=== PATIENT | male | born 1945 | race Caucasian/White ===

== ENCOUNTER 2019-01-02 15:07 | Inpatient (IN) | payer MEDICARE, BC ==
[~2019-01-02] VITALS: Ht 177.8 cm; Wt 61.7 kg
[~2019-01-02 15:07] MED LIST: CARB-35 PO; CARB-93 PO; HYDR25TA4 PO; OLME40TA12 PO; POTA10CA43 PO; TEMA15CA PO
[2019-01-02 16:00] VITALS: BP 115/76
[2019-01-02] MEDS ORDERED: MAGNESIUM HYDROXIDE 30 ML LIQUID UDC PO PRN (16:30)
[2019-01-02] MEDS ORDERED: MAG HYDROX/AL HYDROX/SIMETH 30 ML LIQUID UDC PO PRN (16:30)
[2019-01-02] MEDS ORDERED: ACETAMINOPHEN 325 MG TABLET PO PRN (16:30)
[2019-01-02] MEDS: LORAZEPAM 0.5 MG TABLET PO PRN (18:09)
--- NOTE | 2019-01-02 20:00 | NUR ---
RECEIVED PATIENT IN THE DAY ROOM, SITTING UP IN A SEGUNDO CHAIR. HE IS NOTED A/O X 1 (TO NAME ONLY) CONFUSED, IMPAIRED INSIGHT AND JUDGMENT IS ALSO NOTED. HE IS NOTED CALM AND PLEASANT AND IN NO DISTRESS. HE IS ON 1:1 SUPERVISION FOR FALL PRECAUTION, WONDERING AND UNABLE TO CFS. PATIENT WAS REASSURED FOR HIS SAFETY. WILL CONTINUE TO MONITOR.
[2019-01-02 21:19] VITALS: BP 112/56
[2019-01-03] MEDS: TEMAZEPAM 7.5 MG CAPSULE PO PRN ×2 (00:26→22:39)
[2019-01-03 07:30] VITALS: BP 114/76
[2019-01-03 09:21] LABS: CARBON DIOXIDE 20 mmol/L (21-32); CHLORIDE 104 mmol/L (98-107); CREATININE 1.6 mg/dL (0.6-1.3); GLUCOSE 108 mg/dL (74-106); POTASSIUM 3.5 mmol/L (3.5-5.1); UREA NITROGEN, BLOOD 24 mg/dL (7-18)
--- NOTE | 2019-01-03 13:00 | NUR ---
Gps/Colorist Formulator- Patient's Aydee, came in to see/visit patient, pertinent records provided and was placed in the chart. Patient's Aydee is the DPOA, provided copy of the DNR, list of meds.,and informations regarding his Lewy body dementia . Remains with 1:1 Nursing supervision for safety.
[2019-01-03] MEDS: LORAZEPAM 0.5 MG TABLET PO PRN (15:52)
[2019-01-03 16:00] VITALS: BP 149/88
[2019-01-03] MEDS: SERTRALINE HCL 50 MG TABLET PO SCH (16:45)
[2019-01-03] MEDS: busPIRone 5 MG TABLET PO SCH (16:45)
[2019-01-03] MEDS: OXCARBAZEPINE 150 MG TABLET PO SCH (16:45)
--- NOTE | 2019-01-03 18:25 | NUR ---
Gps/Survival Specialist-Primo Rutherford (Neurologist) in to see patient , orders received to start patient on his carbidopa levodopa 25/100 mg 3 tabs po q am, 2 tabs po daily at noon and daily 1 tab. po q pm at 1700.Noted patient was sleepy this pm , informed patient was up on his suhas-chair most of the morning, and pt. was restless this pm ativan 0.5 mg po was given crushed with apple sauce. Remains with 1:1 Nursing supervision for safety.
--- NOTE | 2019-01-03 18:46 | NUR ---
Gps/Wastewater Design Engineer- Dr Palacios was called, texted to reconcile medications.
[2019-01-03 20:00] VITALS: BP 118/68
--- NOTE | 2019-01-03 21:50 | NUR ---
Received pt resting in bed. AAO x1. No acute distress noted. No facial cues for pain noted. Appears to be calm. 1:1 sitter at bedside for safety. Safety measures maintained. Bed alarm on. Will continue to monitor.
[2019-01-03] MEDS: METOPROLOL TARTRATE 25 MG TABLET PO SCH (22:35)
[2019-01-04 07:10] LABS: BASOPHILS # (AUTO) 0.1 K/uL (0.0-8.0); EOSINOPHILS # (AUTO) 0.2 K/uL (0.0-0.7); EOSINOPHILS % (AUTO) 1.7 % (0.0-7.0); HEMATOCRIT 35.3 % (36.7-47.1); HEMOGLOBIN 12.3 g/dL (12.5-16.3); LYMPHOCYTES # (AUTO) 1.4 K/uL (20.0-40.0); LYMPHOCYTES % (AUTO) 13.6 % (20.5-51.5); MEAN CORPUSCULAR HEMOGLOBIN 32.4 uug (23.8-33.4); MEAN CORPUSCULAR HGB CONC 35 g/dL (32.5-36.3); MEAN CORPUSCULAR VOLUME 92.8 fL (73.0-96.2); MONOCYTES # (AUTO) 0.8 K/uL (2.0-10.0); MONOCYTES % (AUTO) 7.8 % (0.0-11.0); NEUTROPHILS # (AUTO) 7.6 K/uL (1.8-8.9); NEUTROPHILS % (AUTO) 75.9 % (38.5-71.5); PLATELET COUNT (AUTO) 145 K/uL (152-348); WHITE BLOOD COUNT (AUTO) 10.1 K/uL (3.6-10.2)
[2019-01-04 07:59] LABS: ALANINE AMINOTRANSFERASE 38 U/L (16-63); ALKALINE PHOSPHATASE 89 U/L (50-136); ASPARTATE AMINOTRANSFERASE 30 U/L (15-37); BILIRUBIN,TOTAL 0.8 mg/dL (0.2-1.0); CARBON DIOXIDE 27 mmol/L (21-32); CHLORIDE 105 mmol/L (98-107); CREATININE 1.2 mg/dL (0.6-1.3); GLUCOSE 101 mg/dL (74-106); MAGNESIUM 1.9 mg/dL (1.8-2.4); POTASSIUM 3.4 mmol/L (3.5-5.1); TOTAL PROTEIN, SERUM 6.3 g/dL (6.4-8.2); UREA NITROGEN, BLOOD 21 mg/dL (7-18)
[2019-01-04 08:21] LABS: THYROID STIMULATING HORMONE 1.343 mIU/mL (0.358-3.740)
[2019-01-04 08:30] VITALS: BP 107/54
[2019-01-04] MEDS: busPIRone 5 MG TABLET PO SCH ×3 (08:56→18:03)
[2019-01-04] MEDS: POTASSIUM CHLORIDE 10 MEQ TAB.PRT.SR PO SCH (08:56)
[2019-01-04] MEDS: CARBIDOPA/LEVODOPA 25-100MG TABLET PO SCH (08:56)
[2019-01-04] MEDS: OXCARBAZEPINE 150 MG TABLET PO SCH (08:57)
[2019-01-04] MEDS: METOPROLOL TARTRATE 25 MG TABLET PO SCH ×2 (08:57→20:26)
[2019-01-04] MEDS ORDERED: POTASSIUM CHLORIDE 10 MEQ TAB.PRT.SR PO ONE (09:30)
[2019-01-04] MEDS: CARBIDOPA/LEVODOPA CR 25-100MG TABLET.SA PO SCH ×3 (12:16→17:29)
--- NOTE | 2019-01-04 14:56 | NUR ---
Initial Discharge Plan: Patient is a 73 year old male who was living at [facility] [[address], [place] [address]; ] for 1 week prior to admission. Per Kyung, patient [[phone]], patient will be unable to return to facility due to unmanageable behavior. Kyung states that she has found a new placement with [facility] [[address], [place], [place]; ]. viscosity worker will follow-up with facility RN, Kalee, about patient discharging to facility when ready. viscosity worker will continue to collaborate with patient, Kyung, and MD on a safe and proper discharge.
[2019-01-04 16:00] VITALS: BP 108/58
[2019-01-04] MEDS: SERTRALINE HCL 50 MG TABLET PO SCH (18:04)
--- NOTE | 2019-01-04 18:15 | NUR ---
Gps/Chief Of Field Operations- remains sitting up on his suhas-chair sitter with patient , assisted w/ his meals . Routine pm meds. was crushed administered with apple sauce, pt. was spiiting out his med.
[2019-01-04 20:10] VITALS: BP 115/64
[2019-01-04] MEDS: TEMAZEPAM 7.5 MG CAPSULE PO PRN (23:53)
--- NOTE | 2019-01-05 06:19 | NUR ---
Gps: Remain confused and disoriented.assisted with adl's.all hs po meds crushed administered with apple sauce due to patient had difficulty of swallowing meds. slept 6 hrs through the night after sleeping meds given. continue on 1:1 sitter @ bedside fir safety.continue plan of care.
[2019-01-05 07:30] VITALS: BP 142/67
[2019-01-05] MEDS: busPIRone 5 MG TABLET PO SCH ×3 (08:12→16:44)
[2019-01-05] MEDS: POTASSIUM CHLORIDE 10 MEQ TAB.PRT.SR PO SCH (08:12)
[2019-01-05] MEDS: METOPROLOL TARTRATE 25 MG TABLET PO SCH ×2 (08:13→21:43)
[2019-01-05] MEDS: CARBIDOPA/LEVODOPA 25-100MG TABLET PO SCH (08:14)
[2019-01-05] MEDS: LORAZEPAM 0.5 MG TABLET PO PRN (11:26)
[2019-01-05] MEDS: CARBIDOPA/LEVODOPA CR 25-100MG TABLET.SA PO SCH ×2 (12:43→16:45)
[2019-01-05 16:32] VITALS: BP 124/65
[2019-01-05] MEDS: SERTRALINE HCL 50 MG TABLET PO SCH (16:45)
--- NOTE | 2019-01-05 17:53 | NUR ---
GPS; RECEIEVED PATIENT ASLEEP ON BED ON 1:1 SITTER FOR SAFETY, PATIENT ALERT, CONFUSED, DISORIENTED, PATIENT CALM BUT NEEDS PROMPTING AND TOTAL CARE, COMPLIANT TO MEDICATION , ALL NEEDS ATTENDED WILL CONTINUE MONITOR
[2019-01-05 20:09] VITALS: BP 120/57
[2019-01-06] MEDS: TEMAZEPAM 7.5 MG CAPSULE PO PRN (00:28)
[2019-01-06 07:30] VITALS: BP 111/70
--- NOTE | 2019-01-06 07:43 | NUR ---
SBAR report received,pt.sleeping,no s/s of distress or pain noted. sitter 1:1 at bedside.
[2019-01-06] MEDS: busPIRone 5 MG TABLET PO SCH ×3 (08:33→17:22)
[2019-01-06] MEDS: POTASSIUM CHLORIDE 10 MEQ TAB.PRT.SR PO SCH (08:33)
[2019-01-06] MEDS: CARBIDOPA/LEVODOPA 25-100MG TABLET PO SCH (08:34)
[2019-01-06] MEDS: METOPROLOL TARTRATE 25 MG TABLET PO SCH ×2 (08:34→20:33)
[2019-01-06] MEDS: CARBIDOPA/LEVODOPA CR 25-100MG TABLET.SA PO SCH ×2 (13:07→17:26)
[2019-01-06 14:12] LABS: BASOPHILS # (AUTO) 0.1 K/uL (0.0-8.0); BASOPHILS % (AUTO) 0.7 % (0.0-2.0); EOSINOPHILS % (AUTO) 0.5 % (0.0-7.0); HEMATOCRIT 38.3 % (36.7-47.1); LYMPHOCYTES # (AUTO) 0.4 K/uL (20.0-40.0); LYMPHOCYTES % (AUTO) 4.7 % (20.5-51.5); MEAN CORPUSCULAR HEMOGLOBIN 32.1 uug (23.8-33.4); MEAN CORPUSCULAR HGB CONC 34 g/dL (32.5-36.3); MEAN CORPUSCULAR VOLUME 94.4 fL (73.0-96.2); MONOCYTES # (AUTO) 0.5 K/uL (2.0-10.0); MONOCYTES % (AUTO) 6.5 % (0.0-11.0); NEUTROPHILS # (AUTO) 6.8 K/uL (1.8-8.9); NEUTROPHILS % (AUTO) 87.6 % (38.5-71.5); PLATELET COUNT (AUTO) 168 K/uL (152-348); RED BLOOD CELL COUNT(AUTO) 4.06 MIL/uL (4.06-5.63); WHITE BLOOD COUNT (AUTO) 7.8 K/uL (3.6-10.2)
[2019-01-06 14:19] LABS: CARBON DIOXIDE 27 mmol/L (21-32); CHLORIDE 108 mmol/L (98-107); CREATININE 1.5 mg/dL (0.6-1.3); GLUCOSE 164 mg/dL (74-106); POTASSIUM 4.6 mmol/L (3.5-5.1); UREA NITROGEN, BLOOD 36 mg/dL (7-18)
[2019-01-06 14:20] LABS: ALANINE AMINOTRANSFERASE 15 U/L (16-63); ALKALINE PHOSPHATASE 103 U/L (50-136); ASPARTATE AMINOTRANSFERASE 42 U/L (15-37); BILIRUBIN,TOTAL 0.5 mg/dL (0.2-1.0); TOTAL PROTEIN, SERUM 6.8 g/dL (6.4-8.2)
[2019-01-06 16:31] VITALS: BP 119/66
[2019-01-06] MEDS: SERTRALINE HCL 50 MG TABLET PO SCH (17:23)
--- NOTE | 2019-01-06 18:39 | NUR ---
Pt. more cooperative, still drowsy, non verbal.1:1 sitter at bedside.
[2019-01-06 20:09] VITALS: BP 123/54
--- NOTE | 2019-01-07 06:37 | NUR ---
Patient is disoriented and confused. Slept for 7.3 hours last night. Patient has a 1:1 sitter. Total care given. No agitation at this time. Patient resting in bed comfortably at this time. No distress noted. Safety precautions implemented.
[2019-01-07 07:00] LABS: HEMATOCRIT 35.4 % (36.7-47.1); HEMOGLOBIN 12.2 g/dL (12.5-16.3); LYMPHOCYTES # (AUTO) 0.9 K/uL (20.0-40.0); LYMPHOCYTES % (AUTO) 14.2 % (20.5-51.5); MEAN CORPUSCULAR HEMOGLOBIN 32.3 uug (23.8-33.4); MEAN CORPUSCULAR HGB CONC 35 g/dL (32.5-36.3); MEAN CORPUSCULAR VOLUME 93.4 fL (73.0-96.2); MONOCYTES # (AUTO) 0.7 K/uL (2.0-10.0); MONOCYTES % (AUTO) 10.7 % (0.0-11.0); NEUTROPHILS # (AUTO) 4.8 K/uL (1.8-8.9); NEUTROPHILS % (AUTO) 75.1 % (38.5-71.5); PLATELET COUNT (AUTO) 148 K/uL (152-348); RED BLOOD CELL COUNT(AUTO) 3.79 MIL/uL (4.06-5.63); WHITE BLOOD COUNT (AUTO) 6.3 K/uL (3.6-10.2)
[2019-01-07 07:20] LABS: ALANINE AMINOTRANSFERASE 17 U/L (16-63); ALKALINE PHOSPHATASE 101 U/L (50-136); ASPARTATE AMINOTRANSFERASE 43 U/L (15-37); BILIRUBIN,TOTAL 0.4 mg/dL (0.2-1.0); CARBON DIOXIDE 23 mmol/L (21-32); CHLORIDE 111 mmol/L (98-107); CREATININE 1.4 mg/dL (0.6-1.3); GLUCOSE 121 mg/dL (74-106); POTASSIUM 3.6 mmol/L (3.5-5.1); TOTAL PROTEIN, SERUM 6.3 g/dL (6.4-8.2); UREA NITROGEN, BLOOD 34 mg/dL (7-18)
[2019-01-07 07:30] VITALS: BP 116/51
[2019-01-07] MEDS: POTASSIUM CHLORIDE 10 MEQ TAB.PRT.SR PO SCH (09:18)
[2019-01-07] MEDS: busPIRone 5 MG TABLET PO SCH ×3 (09:18→17:19)
[2019-01-07] MEDS: METOPROLOL TARTRATE 25 MG TABLET PO SCH ×2 (09:19→21:01)
[2019-01-07] MEDS: CARBIDOPA/LEVODOPA 25-100MG TABLET PO SCH (09:25)
--- NOTE | 2019-01-07 10:04 | NUR ---
Discharge planning: structural iron worker called and left a voicemail for MK Granda, at [facility] [[address] [place] [address], [place], [place]; ] regarding patient discharge to facility when ready. structural iron worker awaiting call back.
[2019-01-07] MEDS: CARBIDOPA/LEVODOPA CR 25-100MG TABLET.SA PO SCH ×2 (12:41→17:14)
--- NOTE | 2019-01-07 13:20 | NUR ---
DR MAYORGA HERE TO SEE PATIENT WITH NEW ORDERS AND NOTED PATIENTS STATED THAT PATIENT WAS ABLE TO RECOGNIZE HER WHEN SHE WAS HERE 2 DAYS AGO BUT HE TATUM NOT RECOGNISE HER TODAY DR MAYORGA AWARE.
[2019-01-07] MEDS: SERTRALINE HCL 50 MG TABLET PO SCH ×2 (14:56→17:15)
--- NOTE | 2019-01-07 15:29 | NUR ---
Discharge planning: oyster bed worker called and spoke with patient , Kyung [[phone]], regarding patient discharge plan. Per Kyung, Dr. Espana suggested patient may benefit from SNF placement prior to going to a board and care. Kyung inquired what patient would benefit from. oyster bed worker facilitated conversation about pros and cons of SNF placement. Kyung expressed understanding and agreed to [facility] at [facility] [[address] [place] [address]; ]. Kyung states she is still thinking about [facility] [[facility] [place], [place], [facility]] and would like patient to be assessed for possible placement, but is open to SNF placement as well if board and care cannot manage patient behavior/level of care need. oyster bed worker has agreed to follow-up with Kyung on Monday regarding [facility]. oyster bed worker has faxed inquiry to [facility] and is currently awaiting response from transaction coordinator, Angel. oyster bed worker will follow-up as needed. Addendum: 01/07/19 at 1629 by VINNIE TILLMAN oyster bed worker received call back from Angel, who states that patient will not be accepted to facility due to "no bed availability".
[2019-01-07 15:55] VITALS: BP 121/79
[2019-01-07] MEDS ORDERED: busPIRone 5 MG TABLET PO SCH (17:00)
--- NOTE | 2019-01-07 18:00 | NUR ---
RESTING IN BED CONTINUES TO NEED ONE ON ONE SITTER FOR SAFETY WITH POOR SAFETY AWARENESS RELATED TO CONFUSSION.
[2019-01-07 20:00] VITALS: BP 133/83
[2019-01-07] MEDS ORDERED: OXCARBAZEPINE 150 MG TABLET PO SCH (21:00)
[2019-01-08 07:30] VITALS: BP 117/60
[2019-01-08] MEDS: busPIRone 5 MG TABLET PO SCH ×3 (09:00→16:34)
[2019-01-08] MEDS: POTASSIUM CHLORIDE 10 MEQ TAB.PRT.SR PO SCH (09:00)
[2019-01-08] MEDS: CARBIDOPA/LEVODOPA 25-100MG TABLET PO SCH (09:01)
[2019-01-08] MEDS: METOPROLOL TARTRATE 25 MG TABLET PO SCH ×2 (09:01→21:56)
[2019-01-08] MEDS: SERTRALINE HCL 50 MG TABLET PO SCH ×2 (12:24→16:34)
[2019-01-08] MEDS: CARBIDOPA/LEVODOPA CR 25-100MG TABLET.SA PO SCH ×2 (12:25→16:34)
[2019-01-08 15:31] VITALS: BP 121/65
[2019-01-08 16:19] LABS: *BILIRUBIN,URIN NEGATIVE (NEGATIVE); *BLOOD, URINE 1+ (NEGATIVE); *CLARITY,URINE CLOUDY (CLEAR); *COLOR,URINE YELLOW (YELLOW); *KETONES,URINE NEGATIVE (NEGATIVE); LEUKOCYTE ESTERASE ,URINE 3+ (NEGATIVE); NITRITE, URINE NEGATIVE (NEGATIVE); PH,URINE 5.5 (5.0-8.0); UGLUCOSE NEGATIVE (NEGATIVE)
[2019-01-08 16:30] LABS: BACTERIA,URINE MANY /HPF (NONE SEEN); WBC,URINE TNTC /HPF (0-3)
--- NOTE | 2019-01-08 18:34 | NUR ---
CALLED JENNIFER RYDER RE RESULTS OR URINALYSIS WITH NEW ORDERS AND NOTED.
[2019-01-08 20:39] VITALS: BP 107/62
[2019-01-08] MEDS: CEphaleXIN 500 MG CAPSULE PO SCH (20:41)
[2019-01-08] MEDS ORDERED: OXCARBAZEPINE 150 MG TABLET PO SCH (21:00)
[2019-01-08] MEDS: OXCARBAZEPINE 300 MG TABLET PO SCH (21:00)
--- NOTE | 2019-01-08 21:30 | NUR ---
Patient received 2100 dose of 300mg Trileptal. New order came in for same dose, right after, that was held d/t prescriber error of duplication.
[2019-01-08] MEDS: TEMAZEPAM 7.5 MG CAPSULE PO PRN (21:57)
--- NOTE | 2019-01-08 23:57 | NUR ---
Patient was up in chair most of the evening. Passive, smiling. Cooperated with taking medications. Patient put to bed with 2 person assist. Very stiff and heavy, but did not resist in any way. No combativeness noted so far this shift. Continuing to monitor.
--- NOTE | 2019-01-09 06:13 | NUR ---
Patient assisted out of bed to shower. Very stiff, but he tried to be helpful. No combativeness or aggression noted during the shift of any kind. Full shower received, patient was as compliant as possible given his physical and mental condition. No attempts to climb out of bed during the night. No distress at this time.
[2019-01-09] MEDS: busPIRone 5 MG TABLET PO SCH ×3 (08:32→16:30)
[2019-01-09] MEDS: POTASSIUM CHLORIDE 10 MEQ TAB.PRT.SR PO SCH (08:32)
[2019-01-09] MEDS: CEphaleXIN 500 MG CAPSULE PO SCH ×2 (08:32→20:36)
[2019-01-09] MEDS: METOPROLOL TARTRATE 25 MG TABLET PO SCH ×2 (08:33→20:33)
[2019-01-09] MEDS: CARBIDOPA/LEVODOPA 25-100MG TABLET PO SCH (08:33)
[2019-01-09 10:00] VITALS: BP 158/89
[2019-01-09] MEDS: CARBIDOPA/LEVODOPA CR 25-100MG TABLET.SA PO SCH ×2 (12:09→16:31)
[2019-01-09] MEDS: SERTRALINE HCL 50 MG TABLET PO SCH ×2 (12:10→16:31)
--- NOTE | 2019-01-09 14:03 | NUR ---
Discharge planning: Patient has been assessed by MK Granda, at [facility] [[facility] [place], [place], [place]; ] today. Per Kalee, they will be able to accept patient when ready for discharge. Kalee requests that a physician's report be completed and states she will fax paperwork. biscuit factory worker awaiting faxed physician's report. biscuit factory worker informed patient , Kyung [[phone]], that patient has been accepted to [facility] and care. Per Kyung, she is pleased with this information, but would still like a second option in case placement does not work out. biscuit factory worker informed Kyung that patient has been accepted at [facility] [[address] [place] [address]; ] and she was agreeable to this. Kyung requested that patient also be referred to [facility] [[address], [place] [address]; ]. biscuit factory worker called and spoke with commissions coordinator, Awilda, who requests a referral packet be sent. biscuit factory worker will send referral packet. Addendum: 01/09/19 at 1653 by VINNIE TILLMAN biscuit factory worker received physician's report from Kalee and has given it to MD to fill-out. Per Kalee, patient will also need a chest X-ray. biscuit factory worker informed medical charge entry specialistRoxann, who has put order in.
[2019-01-09 16:00] VITALS: BP 101/70
--- NOTE | 2019-01-09 17:54 | NUR ---
RECEIVED PATIENT ASLEEP ON BED, WITH 1:1 SITTER FOR SAFETY, NO COMBATIVE BEHAVIOR NOTED, PATIENT TOOK MEDICATION WITH APPLE SAUCE, PATIENT WAS REDIRECTABLE, WILL CONTINUE MONITOR
[2019-01-09 19:52] VITALS: BP 121/67
[2019-01-09] MEDS: LORAZEPAM 0.5 MG TABLET PO PRN (20:34)
[2019-01-09] MEDS: OXCARBAZEPINE 300 MG TABLET PO SCH (20:34)
[2019-01-10 07:12] LABS: CARBON DIOXIDE 25 mmol/L (21-32); CHLORIDE 113 mmol/L (98-107); CREATININE 1.7 mg/dL (0.6-1.3); GLUCOSE 117 mg/dL (74-106); UREA NITROGEN, BLOOD 45 mg/dL (7-18)
[2019-01-10 07:30] VITALS: BP 119/87
[2019-01-10] MEDS: busPIRone 5 MG TABLET PO SCH ×2 (08:41→12:48)
[2019-01-10] MEDS: CEphaleXIN 500 MG CAPSULE PO SCH (08:41)
[2019-01-10 08:42] VITALS: BP 119/87
[2019-01-10] MEDS: METOPROLOL TARTRATE 25 MG TABLET PO SCH (08:42)
[2019-01-10] MEDS: CARBIDOPA/LEVODOPA 25-100MG TABLET PO SCH (09:47)
[2019-01-10] MEDS ORDERED: POTASSIUM CHLORIDE 20 MEQ POWDER PACKET PO SCH (11:00)
--- NOTE | 2019-01-10 12:17 | NUR ---
DC NOTE: Patient will be discharged to the medical floor today to address possible pneumonia. Patient , Kyung [[phone]] has been notified and agreeable to plan. Patient will continue on 5250 hold. marble worker will remain available to patient and family for ongoing support as needed.
[2019-01-10] MEDS: SERTRALINE HCL 50 MG TABLET PO SCH (12:48)
[2019-01-10] MEDS: CARBIDOPA/LEVODOPA CR 25-100MG TABLET.SA PO SCH (13:19)
--- NOTE | 2019-01-10 13:42 | NUR ---
Gps/Sports Intern- Called 3rd floor for report, given to Rich Martel. Patient does not have any belongings. Patient assisted with meals, needed prompting and encouragement. No sign of any distress. Discharged to 3rd floor as ordered. was already informed.
== END 2019-01-10 13:49 | disposition short-term general hospital (02) | DRG 885 ==
LOC: GPS 15:07
PROVIDERS: ADMIT Psychiatry & Neurology Psychosomatic Medicine; ATTEND Internal Medicine
DX: F29 Unspecified psychosis not due to a substance or known physiological condition (principal); N17.0 Acute kidney failure with tubular necrosis; J18.9 Pneumonia, unspecified organism; N39.0 Urinary tract infection, site not specified; G93.40 Encephalopathy, unspecified; E44.0 Moderate protein-calorie malnutrition; Z68.1 Body mass index [BMI] 19.9 or less, adult; G31.83 Neurocognitive disorder with Lewy bodies; F02.80 Dementia in other diseases classified elsewhere, unspecified severity, without behavioral disturbance, psychotic disturbance, mood disturbance, and anxiety; E87.6 Hypokalemia; D69.6 Thrombocytopenia, unspecified; D63.8 Anemia in other chronic diseases classified elsewhere; Z87.440 Personal history of urinary (tract) infections; R62.7 Adult failure to thrive; E86.9 Volume depletion, unspecified
CPT/HCPCS: 36415; 71045; 83735; 84100; 84443; 85025; 87077; 87086; 97110; 97112; 97116; 97530

== ENCOUNTER 2019-01-10 15:18 | Inpatient (IN) | payer MEDICARE, BC ==
[~2019-01-10] VITALS: Ht 172.7 cm; Wt 85.7 kg
[~2019-01-10 15:18] MED LIST changes: -TEMA15CA PO
[2019-01-10] MEDS ORDERED: IV NS 1000 ML 1,000 ML IV PRN (15:30)
[2019-01-10] MEDS ORDERED: ZOLPIDEM 5 MG TABLET PO PRN (15:30)
[2019-01-10] MEDS ORDERED: ONDANSETRON 4 MG/2 ML VIAL IV PRN (15:30)
[2019-01-10] MEDS ORDERED: HYDROCODONE/APAP 5-325MG TABLET PO PRN (15:30)
[2019-01-10] MEDS ORDERED: ACETAMINOPHEN 325 MG TABLET PO PRN ×2 (15:30→17:30)
[2019-01-10] MEDS ORDERED: DEXTROSE 50% 50 ML DISP.SYRIN IV PRN (15:45)
[2019-01-10 16:00] VITALS: BP 111/69
[2019-01-10 16:55] LABS: BASOPHILS # (AUTO) 0.1 K/uL (0.0-8.0); BASOPHILS % (AUTO) 1.1 % (0.0-2.0); EOSINOPHILS # (AUTO) 0.1 K/uL (0.0-0.7); EOSINOPHILS % (AUTO) 0.9 % (0.0-7.0); HEMATOCRIT 38.5 % (36.7-47.1); LYMPHOCYTES % (AUTO) 13.6 % (20.5-51.5); MEAN CORPUSCULAR HEMOGLOBIN 31.9 uug (23.8-33.4); MEAN CORPUSCULAR HGB CONC 34 g/dL (32.5-36.3); MEAN CORPUSCULAR VOLUME 94.4 fL (73.0-96.2); MONOCYTES # (AUTO) 1.1 K/uL (2.0-10.0); MONOCYTES % (AUTO) 14.1 % (0.0-11.0); NEUTROPHILS # (AUTO) 5.3 K/uL (1.8-8.9); NEUTROPHILS % (AUTO) 70.3 % (38.5-71.5); PLATELET COUNT (AUTO) 183 K/uL (152-348); RED BLOOD CELL COUNT(AUTO) 4.08 MIL/uL (4.06-5.63); WHITE BLOOD COUNT (AUTO) 7.6 K/uL (3.6-10.2)
[2019-01-10] MEDS ORDERED: MAGNESIUM HYDROXIDE 30 ML LIQUID UDC PO PRN (17:30)
[2019-01-10] MEDS ORDERED: MAG HYDROX/AL HYDROX/SIMETH 30 ML LIQUID UDC PO PRN (17:30)
[2019-01-10] MEDS: LEVOFLOXACIN 500 MG/D5W 500 MG in PREMIXED 1 EACH IV SCH (18:09)
[2019-01-10] MEDS: CEFTRIAXONE 1 G in IV DEXTROSE 5% 50 ML IV SCH (18:09)
[2019-01-10] MEDS: BLOOD SUGAR DIAGNOSTIC 1 EACH STRIP VI SCH ×2 (18:19→21:26)
--- NOTE | 2019-01-10 19:15 | NUR ---
RECEIVED PATIENT AWAKE IN BED AND RESTING COMFORTABLY. THERE ARE NO SIGNS OF ACUTE DISTRESS OR DISCOMFORT NOTED OR OBSERVED. ALL SAFETY AND FALL PREVENTION MEASURES ARE IN PLACE. BED IN LOWEST POSITION AND BRAKE APPLIED. 2 SIDE RAILS ARE UP AND IN LOCKED POSITION. 1:1 SITTER AT BEDSIDE. IV SITE IS PATENT AND INTACT. WILL CONTINUE TO MONITOR.
[2019-01-10 20:00] VITALS: BP 121/56
--- NOTE | 2019-01-10 20:30 | NUR ---
SPOKE WITH OF PATIENT AND GAVE UPDATE ON PATIENT'S STATUS. ASSURED THAT PATIENT IS RESTING COMFORTABLY AND ALL OF HIS NURSING NEEDS HAVE BEEN MET AND WILL CONTINUE TO BE MET DURING THIS SHIFT.
[2019-01-10] MEDS ORDERED: CEphaleXIN 500 MG CAPSULE PO SCH (21:00)
[2019-01-10] MEDS: TEMAZEPAM 7.5 MG CAPSULE PO PRN (21:18)
[2019-01-10] MEDS: OXCARBAZEPINE 300 MG TABLET PO SCH (21:19)
[2019-01-10] MEDS: METOPROLOL TARTRATE 25 MG TABLET PO SCH (21:19)
--- NOTE | 2019-01-11 05:00 | NUR ---
PATIENT SLEPT COMFORTABLY THROUGHOUT THE NIGHT. VS WNL AND PATIENT IS STABLE. IV SITE PATENT AND INTACT. SAFETY AND FALL PREVENTION MEASURES IN PLACE. BED IN LOW POSITION WITH BRAKE LOCKED. SIDE RAILS UP AND LOCKED. 1:1 SITTER AT BEDSIDE AT ALL TIMES. WILL PROVIDE REPORT TO MORNING SHIFT.
[2019-01-11 05:39] VITALS: BP 133/54
[2019-01-11] MEDS: BLOOD SUGAR DIAGNOSTIC 1 EACH STRIP VI SCH ×4 (07:03→20:22)
[2019-01-11 07:50] LABS: BASOPHILS % (AUTO) 0.6 % (0.0-2.0); EOSINOPHILS # (AUTO) 0.1 K/uL (0.0-0.7); EOSINOPHILS % (AUTO) 0.8 % (0.0-7.0); HEMOGLOBIN 12.2 g/dL (12.5-16.3); LYMPHOCYTES # (AUTO) 1.1 K/uL (20.0-40.0); LYMPHOCYTES % (AUTO) 14.3 % (20.5-51.5); MEAN CORPUSCULAR HGB CONC 34 g/dL (32.5-36.3); MEAN CORPUSCULAR VOLUME 94.3 fL (73.0-96.2); MONOCYTES # (AUTO) 1.1 K/uL (2.0-10.0); MONOCYTES % (AUTO) 13.5 % (0.0-11.0); NEUTROPHILS # (AUTO) 5.7 K/uL (1.8-8.9); NEUTROPHILS % (AUTO) 70.8 % (38.5-71.5); PLATELET COUNT (AUTO) 171 K/uL (152-348); RED BLOOD CELL COUNT(AUTO) 3.81 MIL/uL (4.06-5.63); WHITE BLOOD COUNT (AUTO) 8.1 K/uL (3.6-10.2)
[2019-01-11 07:53] LABS: CARBON DIOXIDE 24 mmol/L (21-32); CHLORIDE 115 mmol/L (98-107); CREATININE 1.7 mg/dL (0.6-1.3); GLUCOSE 107 mg/dL (74-106); PHOSPHOROUS 3.4 mg/dL (2.5-4.9); POTASSIUM 4.1 mmol/L (3.5-5.1); UREA NITROGEN, BLOOD 45 mg/dL (7-18)
--- NOTE | 2019-01-11 08:00 | NUR ---
Sleeping, appears comfortable. 1:1 sitter at bedside
[2019-01-11 09:00] VITALS: BP 119/55
[2019-01-11] MEDS ORDERED: POTASSIUM CHLORIDE 10 MEQ TAB.PRT.SR PO SCH (09:00)
[2019-01-11] MEDS: busPIRone 5 MG TABLET PO SCH ×3 (09:34→17:40)
[2019-01-11] MEDS: METOPROLOL TARTRATE 25 MG TABLET PO SCH ×3 (09:35→20:32)
[2019-01-11] MEDS: CARBIDOPA/LEVODOPA 25-100MG TABLET PO SCH (09:35)
--- NOTE | 2019-01-11 09:40 | NUR ---
Temp 100.1. Tylenol po given
--- NOTE | 2019-01-11 10:45 | NUR ---
Renal ultrasound showed distended bladder, approximately 1 liter or more urine retention, even though with noted urine in the diaper. With orders to insert richardson catheter, inserted with 1700 initial urine output with sediments, purulent. Urine seen by Dr. Rao. Urine specimen sen to lab as ordered.
[2019-01-11 11:29] LABS: *BILIRUBIN,URIN NEGATIVE (NEGATIVE); *BLOOD, URINE 3+ (NEGATIVE); *CLARITY,URINE CLOUDY (CLEAR); *COLOR,URINE YELLOW (YELLOW); *KETONES,URINE NEGATIVE (NEGATIVE); *UROBILINOGEN,URINE 0.2 E.U./dl (NORMAL); LEUKOCYTE ESTERASE ,URINE 3+ (NEGATIVE); NITRITE, URINE POSITIVE (NEGATIVE); PH,URINE 6.5 (5.0-8.0); UGLUCOSE NEGATIVE (NEGATIVE)
[2019-01-11 11:38] LABS: *CREATININE,URINE 77.7 mg/dL (30-125); *URINE TOTAL PROTEIN RANDOM 314.6 mg/dL (<150/24HR)
[2019-01-11 11:56] LABS: WBC,URINE TNTC /HPF (0-3)
[2019-01-11 11:57] LABS: BACTERIA,URINE FEW /HPF (NONE SEEN); RBC,URINE 80-100 /HPF (0-3); SQUAMOUS EPITHELIAL CELL,UR NONE SEEN /HPF (NONE SEEN)
[2019-01-11] MEDS: IV D5 1/2 NS 1000 ML 1,000 ML IV PRN ×2 (12:04→23:55)
[2019-01-11] MEDS: CARBIDOPA/LEVODOPA CR 25-100MG TABLET.SA PO SCH ×2 (12:11→17:40)
[2019-01-11] MEDS: SERTRALINE HCL 50 MG TABLET PO SCH ×2 (12:12→17:40)
[2019-01-11] MEDS ORDERED: CARBIDOPA/LEVODOPA 25-100MG TABLET PO SCH ×2 (13:00→17:00)
--- NOTE | 2019-01-11 14:16 | NUR ---
Resting comfortably. at bedside
--- NOTE | 2019-01-11 15:30 | NUR ---
Speech Therapist at bedside, swallow eval done. at bedside
[2019-01-11 16:26] VITALS: BP 135/75
[2019-01-11] MEDS: LEVOFLOXACIN 500 MG/D5W 500 MG in PREMIXED 1 EACH IV SCH (16:44)
[2019-01-11] MEDS: CEFTRIAXONE 1 G in IV DEXTROSE 5% 50 ML IV SCH (17:40)
--- NOTE | 2019-01-11 18:45 | NUR ---
Assisted with meal by sitter with aspiration precaution. Repositioned comfortably.
[2019-01-11 20:15] VITALS: BP 127/73
[2019-01-11] MEDS: OXCARBAZEPINE 300 MG TABLET PO SCH ×2 (20:22→20:32)
[2019-01-11] MEDS: CULTURELLE CAPSULE PO SCH ×2 (20:22→20:32)
[2019-01-11] MEDS: INSULIN REGULAR, HUMAN 300 UNIT/3 ML VIAL SQ PRN (20:26)
[2019-01-11] MEDS: LORAZEPAM 0.5 MG TABLET PO PRN (20:31)
--- NOTE | 2019-01-12 02:30 | NUR ---
PER CARE NOTES FROM MD VALDES DATED 01/11/19, DIET IS ADA MECHANICAL SOFT. ORDER PLACED PER NOTES.
--- NOTE | 2019-01-12 04:13 | NUR ---
PATIENT SLEPT COMFORTABLY THROUGHOUT NIGHT WITH 1:1 SITTER AT BEDSIDE. NO OBSERVATIONS OF ACUTE DISTRESS OR DISCOMFORT NOTED OR OBSERVED. VS ARE WNL AND PATIENT HAS REMAINED STABLE THIS SHIFT. IV ANTIBIOTIC INFUSED ORDERED WITH NO ADVERSE EFFECTS NOTED OR OBSERVED. SAFETY AND FALL PRECAUTION MEASURES IN PLACE. BED IS IN LOWEST POSITION AND BRAKE IS LOCKED. 2 SIDE RAILS ARE UP AND LOCKED. CALL LIGHT IS WITHIN REACH AT ALL TIMES. WILL PROVIDE INFORMATION TO ONCOMING SHIFT.
[2019-01-12] MEDS: PIPERACILLIN/TAZOBACTAM/D5W 3.375 G in PREMIXED 1 EACH IV SCH ×3 (05:19→22:01)
[2019-01-12 05:31] VITALS: BP 143/90
[2019-01-12] MEDS: BLOOD SUGAR DIAGNOSTIC 1 EACH STRIP VI SCH ×4 (05:39→20:54)
[2019-01-12 05:43] LABS: BASOPHILS # (AUTO) 0.1 K/uL (0.0-8.0); BASOPHILS % (AUTO) 0.7 % (0.0-2.0); EOSINOPHILS # (AUTO) 0.2 K/uL (0.0-0.7); EOSINOPHILS % (AUTO) 2.7 % (0.0-7.0); HEMATOCRIT 34.2 % (36.7-47.1); HEMOGLOBIN 11.7 g/dL (12.5-16.3); LYMPHOCYTES # (AUTO) 0.9 K/uL (20.0-40.0); LYMPHOCYTES % (AUTO) 12.1 % (20.5-51.5); MEAN CORPUSCULAR HEMOGLOBIN 32.2 uug (23.8-33.4); MEAN CORPUSCULAR HGB CONC 34 g/dL (32.5-36.3); MONOCYTES # (AUTO) 0.4 K/uL (2.0-10.0); MONOCYTES % (AUTO) 5.3 % (0.0-11.0); NEUTROPHILS # (AUTO) 5.8 K/uL (1.8-8.9); NEUTROPHILS % (AUTO) 79.2 % (38.5-71.5); PLATELET COUNT (AUTO) 158 K/uL (152-348); RED BLOOD CELL COUNT(AUTO) 3.64 MIL/uL (4.06-5.63); WHITE BLOOD COUNT (AUTO) 7.4 K/uL (3.6-10.2)
[2019-01-12 05:56] LABS: ALANINE AMINOTRANSFERASE 54 U/L (16-63); ALKALINE PHOSPHATASE 85 U/L (50-136); ASPARTATE AMINOTRANSFERASE 54 U/L (15-37); BILIRUBIN,TOTAL 0.4 mg/dL (0.2-1.0); CARBON DIOXIDE 24 mmol/L (21-32); CHLORIDE 113 mmol/L (98-107); CREATININE 1.1 mg/dL (0.6-1.3); GLUCOSE 116 mg/dL (74-106); POTASSIUM 3.8 mmol/L (3.5-5.1); TOTAL PROTEIN, SERUM 5.9 g/dL (6.4-8.2); UREA NITROGEN, BLOOD 31 mg/dL (7-18)
[2019-01-12 07:44] VITALS: BP 128/72
[2019-01-12] MEDS ORDERED: POTASSIUM CHLORIDE 10 MEQ TAB.PRT.SR PO SCH (09:00)
[2019-01-12] MEDS: CARBIDOPA/LEVODOPA 25-100MG TABLET PO SCH (09:10)
[2019-01-12] MEDS: METOPROLOL TARTRATE 25 MG TABLET PO SCH ×2 (09:10→20:38)
[2019-01-12] MEDS: busPIRone 5 MG TABLET PO SCH ×3 (09:11→17:25)
[2019-01-12] MEDS: SERTRALINE HCL 50 MG TABLET PO SCH ×2 (09:11→17:25)
[2019-01-12] MEDS: CULTURELLE CAPSULE PO SCH ×2 (09:11→20:38)
[2019-01-12 11:41] VITALS: BP 137/68
[2019-01-12] MEDS: CARBIDOPA/LEVODOPA CR 25-100MG TABLET.SA PO SCH ×2 (13:22→17:25)
[2019-01-12 16:02] VITALS: BP 112/52
--- NOTE | 2019-01-12 19:07 | NUR ---
Patient was compliant with care today through most of shift. patient continues to be confused and very rigid with diaper changes. Bed in low position, safety measures in place, and 2:1 sitter.
[2019-01-12 19:33] VITALS: BP 131/59
[2019-01-12] MEDS: IV D5 1/2 NS 1000 ML 1,000 ML IV PRN (19:40)
[2019-01-12 20:00] VITALS: BP 131/62
--- NOTE | 2019-01-12 20:00 | NUR ---
RECEIVED PATIENT AWAKE IN BED. ALERT TO SELF ONLY. CONFUSED BUT PLEASANT WHEN APPROACHED. VSS. IVF INFUSING WELL TO LEFT FA #20 GAUGE. SITTER AT BEDSIDE FOR SAFETY. F/C INTACT AND PATENT, DRAINING TO GRAVITY. NO S/S OF PAIN OR DISCOMFORT. NO RESP. DISTRESS NOTED. ON RA. CALL LIGHT IN REACH. ALL NEEDS ATTENDED. WILL CONTINUE TO MONITOR AND ASSESS.
[2019-01-12] MEDS: OXCARBAZEPINE 300 MG TABLET PO SCH (20:38)
[2019-01-12] MEDS: MAGNESIUM HYDROXIDE 30 ML LIQUID UDC PO PRN (20:56)
--- NOTE | 2019-01-12 21:00 | NUR ---
PATIENT GIVEN MOM 30 ML. FOR CONSTIPATION.
[2019-01-12] MEDS: TEMAZEPAM 7.5 MG CAPSULE PO PRN (21:16)
[2019-01-13 03:52] VITALS: BP 119/68
[2019-01-13 05:49] LABS: BASOPHILS % (AUTO) 0.6 % (0.0-2.0); EOSINOPHILS # (AUTO) 0.3 K/uL (0.0-0.7); EOSINOPHILS % (AUTO) 4.2 % (0.0-7.0); HEMATOCRIT 33.9 % (36.7-47.1); HEMOGLOBIN 11.6 g/dL (12.5-16.3); LYMPHOCYTES # (AUTO) 1.2 K/uL (20.0-40.0); LYMPHOCYTES % (AUTO) 15.9 % (20.5-51.5); MEAN CORPUSCULAR HEMOGLOBIN 31.8 uug (23.8-33.4); MEAN CORPUSCULAR HGB CONC 34 g/dL (32.5-36.3); MEAN CORPUSCULAR VOLUME 93.3 fL (73.0-96.2); MONOCYTES # (AUTO) 0.6 K/uL (2.0-10.0); MONOCYTES % (AUTO) 8.1 % (0.0-11.0); NEUTROPHILS # (AUTO) 5.6 K/uL (1.8-8.9); NEUTROPHILS % (AUTO) 71.2 % (38.5-71.5); PLATELET COUNT (AUTO) 165 K/uL (152-348); RED BLOOD CELL COUNT(AUTO) 3.64 MIL/uL (4.06-5.63); WHITE BLOOD COUNT (AUTO) 7.8 K/uL (3.6-10.2)
[2019-01-13] MEDS: PIPERACILLIN/TAZOBACTAM/D5W 3.375 G in PREMIXED 1 EACH IV SCH ×3 (05:51→21:26)
[2019-01-13 06:03] LABS: CARBON DIOXIDE 24 mmol/L (21-32); CHLORIDE 114 mmol/L (98-107); CREATININE 1.1 mg/dL (0.6-1.3); GLUCOSE 117 mg/dL (74-106); POTASSIUM 3.7 mmol/L (3.5-5.1); UREA NITROGEN, BLOOD 24 mg/dL (7-18)
[2019-01-13] MEDS: BLOOD SUGAR DIAGNOSTIC 1 EACH STRIP VI SCH ×4 (06:32→21:00)
--- NOTE | 2019-01-13 06:44 | NUR ---
PATIENT REPOSITIONED IN BED. SLEPT WELL THROUGHOUT THE NIGHT. COOPERATIVE AND COMPLIANT WITH MEDS AND CARE. VSS. IVF INFUSING WELL ORDERED. CALL LIGHT IN REACH. ALL NEEDS ATTENDED, WILL CONTINUE TO MONITOR. Addendum: 01/13/19 at 0646 by SLIM SAMUELS LVN BED ALARM IN PLACE.
[2019-01-13] MEDS: CARBIDOPA/LEVODOPA 25-100MG TABLET PO SCH (08:28)
[2019-01-13] MEDS: busPIRone 5 MG TABLET PO SCH ×3 (08:29→16:26)
[2019-01-13] MEDS: CULTURELLE CAPSULE PO SCH ×2 (08:29→21:09)
[2019-01-13] MEDS: SERTRALINE HCL 50 MG TABLET PO SCH ×2 (08:29→16:27)
[2019-01-13] MEDS: METOPROLOL TARTRATE 25 MG TABLET PO SCH ×2 (08:30→21:10)
--- NOTE | 2019-01-13 08:30 | NUR ---
AWAKE ALERT TO SELF WITH CONFUSSION AND DISORIENTATION UNABLE TO VERBALISE NEEDS ALL NEEDS ANTICIPATED AND SATISFIED.TOTALLY DEPENDENT ON NURSES FOR ALL ADL TURNED AND REPOSITIONED Q2H FOR COMFORT SPOON FED BREAKFAST WITH POOR APPETITE AT THIS TIME HE IS COMPLIANT WITH MEDICATIONS AND CARE WILL CONTINUE TO OBSERVE
[2019-01-13 11:31] VITALS: BP 107/66
[2019-01-13] MEDS: CARBIDOPA/LEVODOPA CR 25-100MG TABLET.SA PO SCH ×2 (12:18→16:27)
--- NOTE | 2019-01-13 13:30 | NUR ---
PATIENTS IS HERE AT THE BEDSIDE AND DR DWIGHT ZHU CALLED AND SPOKE WITH HER OVER THE PHONE AND GAVE HER DETAILS OF PATIENTS CONDITION AND PLAN OF CARE AND SHE EXPRESSED UNDERSTANDING.
[2019-01-13] MEDS: IV D5 1/2 NS 1000 ML 1,000 ML IV PRN (13:59)
[2019-01-13 15:15] VITALS: BP 106/64
[2019-01-13] MEDS ORDERED: BISACODYL 10 MG SUPP.RECT RC PRN (15:15)
--- NOTE | 2019-01-13 15:15 | NUR ---
NO BOWEL MOVEMENT DOCUMENTED FOR ABOUT 3 DAYS AND PATIENT WAS GIVEN MILK OF MAGNESIA LAST NITE AND STILL NO RESULTS CALLED AND NOTIFIED DR DWIGHT VALDES WITH ORDERS WILL ADMINISTER ORDERED.
--- NOTE | 2019-01-13 17:36 | NUR ---
GETTING AGITATED GRABING AND RESTLESS DUE MEDS WERE GIVEN WITH APPLE SAUCE WILL OBSERVE AND REEVALUATE FOR NEED FOR PRN PSYCH MEDS.
--- NOTE | 2019-01-13 18:43 | NUR ---
NOTED SMALL AMOUNT OF STOOL PERICARE AND DIAPER CHANGED MADE COMFORTABLE AND WILL CONTINUE TO OBSERVE.
[2019-01-13 20:27] VITALS: BP 107/60
--- NOTE | 2019-01-13 20:30 | NUR ---
MS Nursing Note: Lying in bed A/O x1 M/S status I.V D5 1/2 infusing 100 cc hr to left f/a without difficulty wrapped with Kerlix. On R/A Remains on Asp and fall precautions. F/c draining clear yellow urine via gravity. Side rails up Call light within reach.
[2019-01-13] MEDS: INSULIN REGULAR, HUMAN 300 UNIT/3 ML VIAL SQ PRN (21:04)
[2019-01-13] MEDS: OXCARBAZEPINE 300 MG TABLET PO SCH (21:09)
[2019-01-14 05:02] VITALS: BP 134/99
[2019-01-14] MEDS: PIPERACILLIN/TAZOBACTAM/D5W 3.375 G in PREMIXED 1 EACH IV SCH ×3 (06:25→22:03)
--- NOTE | 2019-01-14 06:44 | NUR ---
MS Nursing Note: Lying in bed IV D51/2 @ 100 cchr infusing to LFA without difficulty. Side rails up Call light within reach remains stable.
[2019-01-14 07:26] LABS: CARBON DIOXIDE 24 mmol/L (21-32); CHLORIDE 113 mmol/L (98-107); CREATININE 1.1 mg/dL (0.6-1.3); GLUCOSE 95 mg/dL (74-106); POTASSIUM 3.7 mmol/L (3.5-5.1); UREA NITROGEN, BLOOD 21 mg/dL (7-18)
--- NOTE | 2019-01-14 07:30 | NUR ---
NOTED VERY SMALL PIN SIZE CUT ON THE PATIENTS SCROTUM THAT IS BLEEDING PRESSURE APPLIED TO STOP THE DRESSING PICTURE TAKEN VERY DIFFICULT TO SEE BECAUSE OF THE LOCATION AND THE SIZE.WILL INFORM THE DOCTOR AND WILL CONTINUE TO OBSERVE.
[2019-01-14] MEDS: BLOOD SUGAR DIAGNOSTIC 1 EACH STRIP VI SCH ×4 (07:49→20:11)
[2019-01-14] MEDS: CARBIDOPA/LEVODOPA 25-100MG TABLET PO SCH (08:10)
[2019-01-14] MEDS: busPIRone 5 MG TABLET PO SCH ×3 (08:10→16:32)
[2019-01-14] MEDS: SERTRALINE HCL 50 MG TABLET PO SCH ×2 (08:11→16:32)
[2019-01-14] MEDS: CULTURELLE CAPSULE PO SCH ×2 (08:11→20:10)
[2019-01-14] MEDS: METOPROLOL TARTRATE 25 MG TABLET PO SCH ×2 (08:12→20:11)
--- NOTE | 2019-01-14 09:29 | NUR ---
PHYSICAL THERAPY HERE AND AWARE THAT PATIENT NEEDS PHYSICAL THERAPY EVAL VERY WEAK AND RIGID STATED OKAY WILL SEE PATIENT.
[2019-01-14 11:16] VITALS: BP 116/68
[2019-01-14] MEDS: Z GUARD REMEDY PASTE 57 GM TUBE TOP SCH ×2 (11:23→20:11)
[2019-01-14] MEDS: CARBIDOPA/LEVODOPA CR 25-100MG TABLET.SA PO SCH ×2 (12:49→16:32)
[2019-01-14 15:03] VITALS: BP 102/57
[2019-01-14] MEDS: INSULIN REGULAR, HUMAN 300 UNIT/3 ML VIAL SQ PRN ×2 (16:23→20:13)
[2019-01-14] MEDS: IV D5 1/2 NS 1000 ML 1,000 ML IV PRN (17:02)
[2019-01-14 20:00] VITALS: BP 118/67
--- NOTE | 2019-01-14 20:00 | NUR ---
RECEIVED PATIENT AWAKE IN BED. ALERT TO SELF ONLY. CONFUSED BUT PLEASANT WHEN APPROACHED. VSS. IVF INFUSING WELL TO LEFT FA #20 GAUGE. F/C INTACT AND PATENT, DRAINING TO GRAVITY. NO S/S OF PAIN OR DISCOMFORT. NO RESP. DISTRESS NOTED. ON RA. CALL LIGHT IN REACH. ALL NEEDS ATTENDED. WILL CONTINUE TO MONITOR AND ASSESS.
[2019-01-14] MEDS: OXCARBAZEPINE 300 MG TABLET PO SCH (20:12)
[2019-01-15] MEDS: IV D5 1/2 NS 1000 ML 1,000 ML IV PRN ×2 (03:02→13:03)
[2019-01-15] MEDS: PIPERACILLIN/TAZOBACTAM/D5W 3.375 G in PREMIXED 1 EACH IV SCH ×3 (05:00→21:46)
[2019-01-15 05:48] VITALS: BP 134/76
--- NOTE | 2019-01-15 06:01 | NUR ---
PATIENT ASLEEP. REPOSITIONED TO SIDE. SLEPT WELL THROUGHOUT THE NIGHT. IVF INFUSING WELL. BED ALARM ON. CALL LIGHT IN REACH. ALL NEEDS ATTENDED. WILL CONTINUE TO MONITOR AND ASSESS.
[2019-01-15] MEDS: BLOOD SUGAR DIAGNOSTIC 1 EACH STRIP VI SCH ×4 (06:35→22:18)
[2019-01-15 06:49] LABS: BASOPHILS # (AUTO) 0.1 K/uL (0.0-8.0); BASOPHILS % (AUTO) 0.9 % (0.0-2.0); EOSINOPHILS # (AUTO) 0.4 K/uL (0.0-0.7); EOSINOPHILS % (AUTO) 4.2 % (0.0-7.0); HEMATOCRIT 33.5 % (36.7-47.1); HEMOGLOBIN 11.5 g/dL (12.5-16.3); LYMPHOCYTES # (AUTO) 1.4 K/uL (20.0-40.0); LYMPHOCYTES % (AUTO) 16.3 % (20.5-51.5); MEAN CORPUSCULAR HEMOGLOBIN 32.1 uug (23.8-33.4); MEAN CORPUSCULAR HGB CONC 34 g/dL (32.5-36.3); MEAN CORPUSCULAR VOLUME 93.2 fL (73.0-96.2); MONOCYTES # (AUTO) 0.6 K/uL (2.0-10.0); MONOCYTES % (AUTO) 7.7 % (0.0-11.0); NEUTROPHILS # (AUTO) 5.9 K/uL (1.8-8.9); NEUTROPHILS % (AUTO) 70.9 % (38.5-71.5); PLATELET COUNT (AUTO) 181 K/uL (152-348); WHITE BLOOD COUNT (AUTO) 8.3 K/uL (3.6-10.2)
[2019-01-15 07:09] LABS: CARBON DIOXIDE 22 mmol/L (21-32); CHLORIDE 109 mmol/L (98-107); CREATININE 1.1 mg/dL (0.6-1.3); GLUCOSE 106 mg/dL (74-106); POTASSIUM 3.6 mmol/L (3.5-5.1); UREA NITROGEN, BLOOD 16 mg/dL (7-18)
[2019-01-15] MEDS: busPIRone 5 MG TABLET PO SCH ×3 (08:04→16:30)
[2019-01-15] MEDS: CULTURELLE CAPSULE PO SCH ×2 (08:04→21:41)
[2019-01-15] MEDS: CARBIDOPA/LEVODOPA 25-100MG TABLET PO SCH (08:05)
[2019-01-15] MEDS: SERTRALINE HCL 50 MG TABLET PO SCH ×2 (08:05→16:30)
[2019-01-15] MEDS: METOPROLOL TARTRATE 25 MG TABLET PO SCH (08:05)
[2019-01-15] MEDS: Z GUARD REMEDY PASTE 57 GM TUBE TOP SCH ×2 (08:06→21:43)
--- NOTE | 2019-01-15 08:30 | NUR ---
CONFUSED DISORIENTED NO AGGRESSIVE BEHAVIOR AT THIS TIME COMPLIANT WITH MEDICATIONS WILL CONTINUE TO PROVIDE SAFE AND THERAPEUTIC ENVIRONMENT AT ALL TIMES.
[2019-01-15 10:35] LABS: BILIRUBIN,DIRECT 0.1 mg/dL (0.0-0.2); BILIRUBIN,TOTAL 0.4 mg/dL (0.2-1.0); TOTAL PROTEIN, SERUM 5.4 g/dL (6.4-8.2)
[2019-01-15 11:46] VITALS: BP 98/51
--- NOTE | 2019-01-15 11:53 | NUR ---
AMBULATED IN THE HALLWAY WITH THE FRONT WHEEL WALKER WITH THE PHYSICAL THERAPIST AND SEATED UP ON THE CHAIR IN HIS ROOM REMAIN CONFUSED ALL NEEDS ANTICIPATED AND SATISFIED REMAIN ON IVF ORDERED WITH NO S/S OF INFILTERATION ON SITE AT THIS TIME WILL CONTINUE TO OBSERVE AND PROVIDE SAFE AND THERAPEUTIC ENVIRONMENT AT ALL TIMES.
[2019-01-15] MEDS: CARBIDOPA/LEVODOPA CR 25-100MG TABLET.SA PO SCH ×2 (12:17→16:29)
--- NOTE | 2019-01-15 13:14 | NUR ---
ASSISTED BACK INTO BED WITH MAX ASSIST BY THE PHYSICAL THERAPY MADE COMFORTABLE AND TOLERATED WELL
[2019-01-15 15:33] VITALS: BP 91/54
[2019-01-15] MEDS: LORAZEPAM 0.5 MG TABLET PO PRN ×2 (16:30→21:42)
--- NOTE | 2019-01-15 16:35 | NUR ---
PATIENT IS CONFUSED AND DISORIENTED AT THIS TIME RESTLESS AND ATTEMPTING TO GET OUT OF BED UNASSISTED AT RISK FOR FALL UNABLE TO REDIRECT MEDICATED WITH ATIVAN ORDERED MADE COMFORTABLE AND WILL CONTINUE TO OBSERVE
--- NOTE | 2019-01-15 18:15 | NUR ---
AWAKE BUT CALMER NEW ORDERS NOTED FROM DR PINEDA WILL CONTINUE TO OBSERVE.
[2019-01-15] MEDS: IV NS 1000 ML 1,000 ML IV PRN (18:43)
[2019-01-15 19:16] VITALS: BP 121/73
--- NOTE | 2019-01-15 21:00 | NUR ---
Received patient awake and oriented to self in bed. Patient is confused. No signs of acute distress noted. No SOB. IV on left FA #20 intact and patent with NS running at 70mls/hr. Doe in place with clear, yellow urine output. Tolerated medications crushed in apple sauce. Continue aspiration precautions. Safety and comfort measures implemented. ALl needs met at this time. Call light within reach. Will continue to monitor.
[2019-01-15] MEDS: TAMSULOSIN HCL 0.4 MG CAP.SR.24H PO SCH (21:42)
[2019-01-15] MEDS: OXCARBAZEPINE 300 MG TABLET PO SCH (21:43)
[2019-01-16 03:19] VITALS: BP 141/77
[2019-01-16] MEDS: PIPERACILLIN/TAZOBACTAM/D5W 3.375 G in PREMIXED 1 EACH IV SCH ×3 (05:00→22:22)
[2019-01-16 06:57] LABS: BASOPHILS # (AUTO) 0.1 K/uL (0.0-8.0); BASOPHILS % (AUTO) 0.8 % (0.0-2.0); EOSINOPHILS # (AUTO) 0.3 K/uL (0.0-0.7); EOSINOPHILS % (AUTO) 3.3 % (0.0-7.0); HEMATOCRIT 33.2 % (36.7-47.1); HEMOGLOBIN 11.4 g/dL (12.5-16.3); LYMPHOCYTES # (AUTO) 1.4 K/uL (20.0-40.0); LYMPHOCYTES % (AUTO) 16.5 % (20.5-51.5); MEAN CORPUSCULAR HEMOGLOBIN 31.8 uug (23.8-33.4); MEAN CORPUSCULAR HGB CONC 34 g/dL (32.5-36.3); MEAN CORPUSCULAR VOLUME 92.7 fL (73.0-96.2); MONOCYTES # (AUTO) 0.6 K/uL (2.0-10.0); MONOCYTES % (AUTO) 7.5 % (0.0-11.0); NEUTROPHILS % (AUTO) 71.9 % (38.5-71.5); PLATELET COUNT (AUTO) 178 K/uL (152-348); RED BLOOD CELL COUNT(AUTO) 3.59 MIL/uL (4.06-5.63); WHITE BLOOD COUNT (AUTO) 8.3 K/uL (3.6-10.2)
[2019-01-16] MEDS: BLOOD SUGAR DIAGNOSTIC 1 EACH STRIP VI SCH ×4 (07:00→20:10)
[2019-01-16 07:11] LABS: ALANINE AMINOTRANSFERASE 63 U/L (16-63); ALKALINE PHOSPHATASE 88 U/L (50-136); ASPARTATE AMINOTRANSFERASE 48 U/L (15-37); BILIRUBIN,TOTAL 0.4 mg/dL (0.2-1.0); CARBON DIOXIDE 23 mmol/L (21-32); CHLORIDE 107 mmol/L (98-107); CREATININE 0.9 mg/dL (0.6-1.3); GLUCOSE 90 mg/dL (74-106); MAGNESIUM 1.7 mg/dL (1.8-2.4); PHOSPHOROUS 2.1 mg/dL (2.5-4.9); POTASSIUM 3.3 mmol/L (3.5-5.1); TOTAL PROTEIN, SERUM 5.3 g/dL (6.4-8.2); UREA NITROGEN, BLOOD 14 mg/dL (7-18)
--- NOTE | 2019-01-16 07:29 | NUR ---
Patient slept throughout most of the night. No acute distress noted. No SOB. No change in status. Continue plan of care. Will endorse to incoming nurse.
[2019-01-16] MEDS: CULTURELLE CAPSULE PO SCH ×2 (08:01→20:00)
[2019-01-16] MEDS: CARBIDOPA/LEVODOPA 25-100MG TABLET PO SCH (08:02)
[2019-01-16] MEDS: SERTRALINE HCL 50 MG TABLET PO SCH ×2 (08:02→16:07)
[2019-01-16] MEDS: Z GUARD REMEDY PASTE 57 GM TUBE TOP SCH ×2 (08:02→20:03)
[2019-01-16] MEDS: busPIRone 5 MG TABLET PO SCH ×3 (08:02→16:07)
[2019-01-16] MEDS: ENSURE WITH FIBER 237 ML LIQUID (CHOCOLATE) PO SCH ×3 (08:33→17:00)
[2019-01-16] MEDS: IV NS 1000 ML 1,000 ML IV PRN (08:59)
[2019-01-16] MEDS ORDERED: MAGNESIUM OXIDE 400 MG TABLET PO ONE (09:15)
[2019-01-16] MEDS: POTASSIUM PHOSPHATE MM 7.5 MMOL in IV DEXTROSE 5% 100 ML IV SCH ×2 (10:05→12:48)
[2019-01-16] MEDS: INSULIN REGULAR, HUMAN 300 UNIT/3 ML VIAL SQ PRN (10:43)
[2019-01-16 11:40] VITALS: BP 94/51
[2019-01-16] MEDS: CARBIDOPA/LEVODOPA CR 25-100MG TABLET.SA PO SCH ×2 (12:50→16:07)
[2019-01-16 14:08] LABS: *BILIRUBIN,URIN NEGATIVE (NEGATIVE); *BLOOD, URINE 2+ (NEGATIVE); *COLOR,URINE YELLOW (YELLOW); *KETONES,URINE TRACE (NEGATIVE); LEUKOCYTE ESTERASE ,URINE NEGATIVE (NEGATIVE); NITRITE, URINE NEGATIVE (NEGATIVE); PH,URINE 5.5 (5.0-8.0); UGLUCOSE NEGATIVE (NEGATIVE)
[2019-01-16 14:09] LABS: *CLARITY,URINE SLIGHTLY CLOUDY (CLEAR)
[2019-01-16 14:10] LABS: BACTERIA,URINE FEW /HPF (NONE SEEN); SQUAMOUS EPITHELIAL CELL,UR FEW /HPF (NONE SEEN); WBC,URINE 0-3 /HPF (0-3)
[2019-01-16 15:45] VITALS: BP 119/65
[2019-01-16 19:16] VITALS: BP 109/47
[2019-01-16] MEDS: TAMSULOSIN HCL 0.4 MG CAP.SR.24H PO SCH (20:00)
[2019-01-16] MEDS: OXCARBAZEPINE 300 MG TABLET PO SCH (20:00)
[2019-01-17] MEDS: TEMAZEPAM 7.5 MG CAPSULE PO PRN (00:49)
[2019-01-17 03:13] VITALS: BP 138/71
[2019-01-17] MEDS: PIPERACILLIN/TAZOBACTAM/D5W 3.375 G in PREMIXED 1 EACH IV SCH (05:00)
--- NOTE | 2019-01-17 05:48 | NUR ---
Patient appeared restless and was administered PRN Restoril. Patient was then able to sleep throughout the night. No change in status. Tolerated medications. No acute distress noted. D/c planned for this following morning. Will endorse to incoming shift accordingly.
[2019-01-17] MEDS: BLOOD SUGAR DIAGNOSTIC 1 EACH STRIP VI SCH (06:33)
[2019-01-17] MEDS: busPIRone 5 MG TABLET PO SCH (08:11)
[2019-01-17] MEDS: CARBIDOPA/LEVODOPA 25-100MG TABLET PO SCH (08:11)
[2019-01-17] MEDS: Z GUARD REMEDY PASTE 57 GM TUBE TOP SCH (08:12)
[2019-01-17] MEDS: CULTURELLE CAPSULE PO SCH (08:12)
[2019-01-17] MEDS: SERTRALINE HCL 50 MG TABLET PO SCH (08:12)
[2019-01-17] MEDS: ENSURE WITH FIBER 237 ML LIQUID (CHOCOLATE) PO SCH (08:49)
[2019-01-17] MEDS ORDERED: HYDR12.5 PO (08:49)
[2019-01-17] MEDS ORDERED: TAMS-3 PO (08:49)
[2019-01-17] MEDS ORDERED: AMOX-430 PO (08:49)
--- NOTE | 2019-01-17 09:00 | NUR ---
PT REFUSED TO TAKE HIS WOUND PICTURE MD MADE AWARE.
--- NOTE | 2019-01-17 09:44 | NUR ---
D/C ORDERS RECEIVED NOTED AND CARRIED OUT ,D/C [place] PER MD ORDERS, NOTIFIED REGARDING DISCHARGE ,PT LEFT THE FACILITY VIA AMBULANCES IN STABLE CONDITION
== END 2019-01-17 10:05 | disposition hospice, home (50) | DRG 871 ==
LOC: MEDSURG3 15:18
PROVIDERS: ADMIT Nurse Practitioner Acute Care; ATTEND Nurse Practitioner Acute Care
DX: A41.9 Sepsis, unspecified organism (principal); J69.0 Pneumonitis due to inhalation of food and vomit; N17.0 Acute kidney failure with tubular necrosis; E43 Unspecified severe protein-calorie malnutrition; F02.81 Dementia in other diseases classified elsewhere, unspecified severity, with behavioral disturbance; E44.0 Moderate protein-calorie malnutrition; J98.11 Atelectasis; N39.0 Urinary tract infection, site not specified; E87.0 Hyperosmolality and hypernatremia; D68.59 Other primary thrombophilia; D63.8 Anemia in other chronic diseases classified elsewhere; Z74.09 Other reduced mobility; G31.83 Neurocognitive disorder with Lewy bodies; Z68.28 Body mass index [BMI] 28.0-28.9, adult; I10 Essential (primary) hypertension; D69.6 Thrombocytopenia, unspecified; E11.65 Type 2 diabetes mellitus with hyperglycemia; N40.1 Benign prostatic hyperplasia with lower urinary tract symptoms; R33.8 Other retention of urine; Z66 Do not resuscitate; E86.0 Dehydration; R13.10 Dysphagia, unspecified; Z87.440 Personal history of urinary (tract) infections; E87.6 Hypokalemia; B96.20 Unspecified Escherichia coli [E. coli] as the cause of diseases classified elsewhere
CPT/HCPCS: 36415; 70030-TC; 71045; 76770; 83605; 83735; 84100; 84156; 84300; 85025; 87086; 92526; 92610; 93307; 97110; 97116; 97530; G0378; J0696; J1815; J1956; J2543; J3490; J7030; J7040; J7042; J7050; J7060